=== PATIENT | male | born 1980 | race Caucasian/White ===

== ENCOUNTER 2018-05-31 07:06 | Day surgery (SDC) | payer OTHER ==
[~2018-05-31 07:06] MED LIST: Lactated Ringers 1,000 ML IV SCH
[2018-05-31] MEDS ORDERED: Propofol 200 MG/20 ML SDV ONE (07:09)
[2018-05-31] MEDS ORDERED: Lidocaine 2% 5 ML SDV ONE (07:09)
[2018-05-31] MEDS ORDERED: fentaNYL 100 MCG/2 ML SDV ONE (07:09)
[2018-05-31] MEDS ORDERED: Midazolam 1 MG/ML 2 ML SDV ONE (07:09)
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
--- NOTE | 2018-05-31 09:15 | PCM.OPNOTE ---
- General Post-Op/Procedure Note Date of Surgery/Procedure: 05/31/18 Operative Procedure(s): egd w bx Findings: see dict [id number] Pre Op Diagnosis: gerd Post-Op Diagnosis: gastritis Anesthesia Technique: Moderate Sedation Primary Surgeon: Julio Carvalho Pathology: sent Complications: None Condition: Good
--- NOTE | 2018-05-31 09:25 | PCM.POSTAN ---
POST ANESTHESIA ASSESSMENT - MENTAL STATUS Mental Status: Alert, Oriented - RESPIRATORY Respiratory Status: Respiratory Rate WNL, Airway Patent, O2 Saturation Stable - CARDIOVASCULAR CV Status: Pulse Rate WNL, Blood Pressure Stable - GASTROINTESTINAL GI Status: No Symptoms - POST OP HYDRATION Hydration Status: Adequate & Stable
--- NOTE | 2018-05-31 09:26 | PCM48HPAN ---
Post Anesthesia Note - EVALUATION WITHIN 48HRS OF ANESTHETIC Vital Signs in Normal Range: Yes Patient Participated in Evaluation: Yes Respiratory Function Stable: Yes Airway Patent: Yes Cardiovascular Function Stable: Yes Hydration Status Stable: Yes Pain Control Satisfactory: Yes Nausea and Vomiting Control Satisfactory: Yes Mental Status Recovered: Yes Resp Rate: 12
--- NOTE | 2018-05-31 12:46 | OR ---
SURGEON: Julio Carvalho MD DATE OF PROCEDURE: 05/31/2018 PREOPERATIVE DIAGNOSIS: Gastroesophageal reflux disease. POSTOPERATIVE DIAGNOSIS: Gastritis. PROCEDURE PERFORMED: Esophagogastroduodenoscopy with biopsy. PROCEDURE IN DETAIL: EGD: The patient was taken to the endoscopy room, and with the INSPECTION MANAGER, Diprivan was administered. A well-lubricated EGD scope was gently inserted through the oropharynx, down the esophagus, passing through the gastroesophageal junction, into the stomach. The mucosa was examined upon the passage. Any etiology will be noted. Once in the stomach, we continued to advance to the distal antrum, passed through the pylorus into the second portion of the duodenum. Again, the mucosa was examined for any abnormality and etiology. The scope was then retrieved back to the stomach and then retroflexed to look at the fundus of the stomach. If a biopsy was indicated, we will biopsy the antrum, body, and gastroesophageal junction. The air will be sucked out while the scope is retrieved to reduce the patient's discomfort. The patient tolerated the procedure well. There were no intraoperative complications. Dr. Carvalho was present through the whole procedure. Prior to surgery, a time-out had been called, the patient identified, procedure identified and antibiotic administered. FINDINGS: 1. The patient is easily sedated with INSPECTION MANAGER and Diprivan. The patient is soundly snoring. 2. Oropharynx and proximal esophagus are normal in appearance. No inflammation, stricture, ulceration, or bleeding. Distal esophagus at GE junction at 40 shows flame-like structures, salmon-colored change, consistent with [id number] acid reflux. Esophagitis is not observed and with the flame-like structures, concern of possible [place] esophagitis. Stomach rugae is normal in appearance. The stomach has a few petechiae, drops of blood, but there is not hemorrhaging, and antrum was inflamed. Duodenum was grossly normal. Retroflexed look at the fundus of stomach, there was no hiatal hernia. Biopsy done at antrum, body, and GE junction at 40 and sucked out the gas while scope pulling out. MADELEINE / JEFERSON /[id number]
== END 2018-05-31 09:44 | disposition home or self-care (01) ==
LOC: MW.SDS 07:06
PROVIDERS: ATTEND Surgery
DX: K21.9 Gastro-esophageal reflux disease without esophagitis (principal); K29.50 Unspecified chronic gastritis without bleeding; G47.33 Obstructive sleep apnea (adult) (pediatric); F43.10 Post-traumatic stress disorder, unspecified; E66.9 Obesity, unspecified; F17.210 Nicotine dependence, cigarettes, uncomplicated; Z99.89 Dependence on other enabling machines and devices; Z79.899 Other long term (current) drug therapy; Z68.36 Body mass index [BMI] 36.0-36.9, adult
CPT/HCPCS: 43239; 88305; 88312; A9270; J2001; J2250; J2704; J3010; J7120; 00731

== ENCOUNTER 2024-03-12 08:12 | Day surgery (SDC) | payer OTHER, BC ==
[~2024-03-12 08:12] MED LIST changes: +Acetaminophen 1,000 MG in Premix Bag 1 BAG IV SCH; +Albuterol 0.083% 2.5 MG/3 ML Neb Soln NEB PRN; +HYDROmorphone 1 MG/ML Syringe IVPUSH PRN; -Lactated Ringers 1,000 ML IV SCH; +Metoclopramide 10 MG/2 ML SDV IVPUSH PRN; +Morphine 2 MG/ML SYRINGE IVPUSH PRN; +Naloxone 0.4 MG/ML SDV IVPUSH PRN; +Ondansetron 4 MG/2 ML SDV IVPUSH PRN; +Phenylephrine HCl In 0.9% NaCl 1 MG/10 ML Syringe IVPUSH PRN; +Ropivacaine 0.5% 5 MG/ML 30 ML SDV ONE; +ceFAZolin 2 GM in Sodium Chloride 0.9% 50 ML IV ONE; +fentaNYL 50 MCG/ML SDV IVPUSH PRN
[2024-03-12] MEDS: Lactated Ringers 1,000 ML IV SCH (08:36)
[2024-03-12] MEDS: Pregabalin 75 MG Cap PO SCH (08:38)
[2024-03-12] MEDS ORDERED: fentaNYL 100 MCG/2 ML SDV ONE ×2 (09:36→11:53)
[2024-03-12] MEDS ORDERED: Propofol 200 MG/20 ML SDV ONE (09:36)
[2024-03-12] MEDS ORDERED: Midazolam 1 MG/ML 2 ML SDV ONE (09:36)
[2024-03-12] MEDS ORDERED: Lidocaine 2% 5 ML SDV ONE (09:37)
[2024-03-12] MEDS ORDERED: Rocuronium Bromide 50 MG/5 ML Syringe ONE ×2 (09:37→11:52)
[2024-03-12] MEDS ORDERED: Bupivacaine 0.5% 30 ML SDV ONE (09:40)
[2024-03-12] MEDS ORDERED: Dexamethasone 4 MG/ML 5 ML MDV ONE (11:01)
[2024-03-12] MEDS ORDERED: Ondansetron 4 MG/2 ML SDV ONE (11:01)
[2024-03-12] MEDS ORDERED: Sugammadex Sodium 200 MG/2 ML VIAL IV ONE (11:47)
[2024-03-12] MEDS ORDERED: ePHEDrine 50 MG/ML SDV ONE (13:45)
[2024-03-12] MEDS ORDERED: Ketorolac 30 MG/ML SDV ONE (13:48)
== END 2024-03-12 15:15 | disposition home or self-care (01) ==
LOC: MW.SDS 08:12
PROVIDERS: ATTEND Surgery
DX: K43.0 Incisional hernia with obstruction, without gangrene (principal); K42.0 Umbilical hernia with obstruction, without gangrene; K21.9 Gastro-esophageal reflux disease without esophagitis; E78.1 Pure hyperglyceridemia; F17.210 Nicotine dependence, cigarettes, uncomplicated; Z79.899 Other long term (current) drug therapy
CPT/HCPCS: 49614; A9270; J0131; J0665; J1100; J1885; J2250; J2405; J2704; J2795; J3010; J3490; J7120

== ENCOUNTER 2025-01-24 22:14 | Emergency (ER) | payer BC ==
[2025-01-24 22:33] LABS: BASOPHILS ABSOLUTE AUTO 0.07 K/uL (0.00-0.20); BASOPHILS PERCENT AUTO 0.7 % (0.0-1.0); EOSINOPHILS ABSOLUTE AUTO 0.17 K/uL (0.00-0.45); EOSINOPHILS PERCENT AUTO 1.7 % (0.0-6.0); IMMATURE GRAN ABSOLUTE AUTO 0.03 K/uL (0.00-0.05); IMMATURE GRAN PERCENT AUTO 0.3 % (0.0-0.4); LYMPHOCYTES ABSOLUTE AUTO 2.33 K/uL (1.00-4.80); LYMPHOCYTES PERCENT AUTO 23.7 % (24.0-44.0); MEAN PLATELET VOLUME 10.0 fL (9.4-12.4); MONOCYTES ABSOLUTE AUTO 1.23 K/uL (0.00-0.80); MONOCYTES PERCENT AUTO 12.5 % (0.0-8.0); NEUTROPHILS ABSOLUTE AUTO 5.99 K/uL (1.80-7.70); NEUTROPHILS PERCENT AUTO 61.1 % (41.0-71.0); NRBC ABSOLUTE 0.00 K/uL (0.00-0.02); NRBC PERCENT 0.0 /100WBC (0.0-0.2); PLATELET COUNT,PLT 215 K/uL (150-400); RED BLOOD CELL COUNT 4.53 M/uL (4.52-5.90); WHITE BLOOD CELL COUNT,WBC 9.82 K/uL (3.9-11.3)
[2025-01-24] MEDS: Ondansetron 4 MG/2 ML SDV IVPUSH ONE (22:41)
[2025-01-24 22:51] LABS: A/G RATIO 1.3 (0.9-1.6); ALANINE AMINOTRANSFERASE,ALT 29 IU/L (14-63); ASPARTATE AMNIOTRANSFERASE,AST 16 IU/L (15-37); BILIRUBIN TOTAL 0.7 mg/dL (0.2-1.0); BLOOD UREA NITROGEN,BUN 11 mg/dL (7.0-18.0); CARBON DIOXIDE,CO2 28.6 mmol/L (21.0-32.0); CHLORIDE,CL 105 mmol/L (98-107); CREATININE 0.8 mg/dL (0.8-1.3); GLUCOSE RANDOM 106 mg/dL (74-106); POTASSIUM,K 4.4 mmol/L (3.5-5.1); PRO B-TYPE NATRIUR PEPT,BNPPRO 61 pg/mL (0-125); PROTEIN TOTAL,TP 6.8 g/dL (6.4-8.2); SODIUM,NA 143 mmol/L (136-148)
[2025-01-24 22:52] LABS: ESTIMATED GFR 112 mL/min (>60)
[2025-01-24] MEDS: Iopamidol 755 MG/ML 500 ML Multipack Bottle IVPUSH STA (23:47)
[2025-01-24] MEDS: fentaNYL 50 MCG/ML SDV IVPUSH ONE (23:49)
[2025-01-25 00:12] LABS: AMPHETAMINES SCREEN, URINE PRESUMPTIVE POSITIVE (CUTOFF=500); BUPRENORPHINE SCREEN,URINE NEGATIVE (CUTOFF=10); METHADONE SCREEN, URINE NEGATIVE (CUTOFF=200); METHAMPHETAMINES SCREEN, URINE NEGATIVE (CUTOFF=500); OXYCODONE SCREEN,URINE NEGATIVE (CUT0FF=100); PCP SCREEN,URINE NEGATIVE (CUTOFF=25); THC SCREEN,URINE 20 NG/ML NEGATIVE (CUTOFF=50)
[2025-01-25] MEDS: droPERidol 2.5 MG/ML SDV IVPUSH ONE (00:37)
[2025-01-25] MEDS: Ketorolac 30 MG/ML SDV IVPUSH ONE (00:39)
[2025-01-25] MEDS: Nitroglycerin 0.4 MG Tab.SL SL ONE (01:36)
== END 2025-01-25 02:27 | disposition home or self-care (01) ==
LOC: MW.ED 22:14
DX: R07.9 Chest pain, unspecified (principal)
CPT/HCPCS: 36415; 71045; 71275; 74174; 80053; 80305; 83690; 83880; 84484; 85025; 93005; 96361; 96372; 96374; 96375; 99285; A9270; J1790; J1885; J2270; J2405; J3010; J7030; Q9967; 93010; 99284